=== PATIENT | female | born 1955 | race Caucasian/White ===

== ENCOUNTER 2020-05-14 07:09 | Inpatient (IN) | payer MEDICARE, MEDICAID ==
[~2020-05-14] VITALS: Ht 180.3 cm; Wt 102.7 kg
[2020-05-14] MEDS ORDERED: SODIUM CHLORIDE 0.9% 1,000 ML IV ONE (07:36)
[2020-05-14] MEDS ORDERED: SODIUM CHLORIDE 0.9% 1,000 ML IVB ONE (07:36)
[2020-05-14] MEDS ORDERED: ASPirin 81 mg TAB PO ONE ×2 (07:45→13:15)
[2020-05-14] MEDS ORDERED: dilTIAZem 25 MG/5 ML VIAL IV ONE (07:45)
[2020-05-14 07:51] LABS: Basophils # (auto) 0 10 ^3/uL (0-0.2); Basophils % (auto) 0.7 % (0.0-2.0); Eosinophils # (auto) 0.2 10 ^3/uL (0-0.8); Eosinophils % (auto) 3.2 % (0.0-7.0); Hematocrit 47.1 % (36.0-46.0); Hemoglobin 15.7 g/dL (12.2-16.2); Lymphocytes # (auto) 1.9 10 ^3/uL (0.4-5.4); Lymphocytes % (auto) 28.5 % (10.0-50.0); Mean Corpuscular Hgb Conc. 33.3 g/dL (32.0-36.0); Mean Corpuscular Volume 93.2 fL (80.0-100.0); Monocytes # (auto) 0.8 10 ^3/uL (0-1.3); Monocytes % (auto) 11.5 % (0.0-12.0); Neutrophils # (auto) 3.7 10 ^3/uL (1.6-8.6); Neutrophils % (auto) 56.1 % (37.0-80.0); Nucleated Red Blood Cells % 0.1 %; Platelet Count (auto) 189 10^3/uL (140-450); Red Blood Cells 5.05 10^6/uL (4.0-5.20); Red Cell Distribution Width 13.7 % (11.8-14.3); White Blood Cell 6.5 10^3/uL (4.4-10.8)
[2020-05-14 08:05] LABS: Albumin 4.1 g/dL (3.4-5.0); Anion Gap 7 (5-15); Blood Urea Nitrogen 17 mg/dL (7-18); Carbon Dioxide 22 mmol/L (21-32); Chloride 106 mmol/L (98-107); Glucose 106 mg/dL (74-106); Magnesium 2.1 mg/dL (1.6-2.6); Potassium 4.1 mmol/L (3.5-5.1); Sodium 135 mmol/L (136-145)
[2020-05-14 08:10] LABS: Alanine Aminotransferase 27 U/L (13-56); Alkaline Phosphatase 92 U/L (45-117); Aspartate Aminotransferase 21 U/L (15-37); BUN/Creatinine Ratio 20.5; Bilirubin, Total 0.9 mg/dL (0.2-1.0); GFR African American 89 mL/min; GFR Non-African American 74 mL/min; Total Protein 7.7 g/dL (6.4-8.2)
[2020-05-14 08:51] LABS: INR 1.05 (0.9-1.15); Partial Thromboplastin Time 25.4 sec (23.0-31.2)
[2020-05-14 09:13] LABS: Urine Bacteria FEW /hpf (None Seen); Urine Blood Negative /uL (Negative); Urine Mucus FEW (None Seen); Urine Specific Gravity 1.011 (1.001-1.035); Urine WBC 2 /hpf (0 - 5)
[2020-05-14] MEDS ORDERED: IOHEXOL 350 MG/ML 100ML IJ ONE (11:01)
[2020-05-14] MEDS ORDERED: NITROGLYCERIN 0.4 MG SL TAB SL PRN ×3 (12:45)
[2020-05-14] MEDS ORDERED: METOPROLOL TARTRATE 1MG/1ML-5ML VIAL IV PRN (12:45)
[2020-05-14] MEDS ORDERED: ALUM & MAG HYDROX-SIMETH LIQ(MAALOX) 30 ML PO PRN (12:45)
[2020-05-14] MEDS ORDERED: MORPHINE SULFATE 4 MG/ML SYR/VIAL IV PRN (12:45)
[2020-05-14] MEDS ORDERED: cefTRIAXone 1GM/50ML D5W 50 ML IV ONE (12:45)
[2020-05-14] MEDS ORDERED: MORPHINE SULF INJ 2 MG/ML SYRINGE 1ML IV PRN ×3 (12:45)
[2020-05-14] MEDS ORDERED: HYDROcodone-ACET 5/325MG TAB PO PRN (12:45)
[2020-05-14] MEDS ORDERED: METOCLOPRAMIDE HCL 5MG/ml INJ 2ml VIAL IV PRN (12:45)
[2020-05-14] MEDS ORDERED: LORazepam 0.5 MG TAB PO PRN (12:45)
[2020-05-14] MEDS ORDERED: SODIUM CHLORIDE 0.9% 1,000 ML IV SCH (12:45)
[2020-05-14] MEDS ORDERED: DOCUSATE SOD 100 MG CAP PO PRN (12:45)
[2020-05-14] MEDS ORDERED: ACETAMINOPHEN 325 MG TAB PO PRN (12:45)
[2020-05-14] MEDS ORDERED: cefTRIAXone SOD 1,000 MG VL ONE (12:50)
[2020-05-14] MEDS ORDERED: AMIODARONE 450mg/250ml AE 250 ML IV SCH (13:13)
[2020-05-14] MEDS ORDERED: AZITHROMYCIN 500MG/ 250ML 250 ML IV ONE (13:15)
[2020-05-14] MEDS ORDERED: AMIODARONE HCL 150 MG in D5W 5% 100 ML IV ONE (13:15)
[2020-05-14] MEDS ORDERED: ENOXAPARIN SOD 40 MG/0.4 ML SYRINGE SC ONE (13:15)
[2020-05-14] MEDS ORDERED: LISINOPRIL 5 MG TAB PO ONE (13:15)
[2020-05-14 13:24] LABS: Cholesterol 131 mg/dL (< 200)
[2020-05-14] MEDS ORDERED: VARE1TAB PO (13:26)
[2020-05-14] MEDS ORDERED: MET25T PO (13:26)
[2020-05-14] MEDS ORDERED: LISI30TA4 PO (13:26)
[2020-05-14 13:27] LABS: HDL Cholesterol 46 mg/dL (40-59); LDL Cholesterol 72 mg/dL (< 100); Triglycerides 126 mg/dL (< 150)
[2020-05-14] MEDS ORDERED: HCTZ25T PO (13:27)
[2020-05-14] MEDS ORDERED: NAP500T PO (13:27)
[2020-05-14] MEDS ORDERED: CHOL500023 PO (13:27)
[2020-05-14] MEDS: SODIUM CHLORIDE 0.9% 1,000 ML IV SCH (14:50)
[2020-05-14 16:31] LABS: Alcohol, Urine < 3.0 mg/dL (0-10); Amphetamine Screen, Urine NEGATIVE (NEGATIVE); Barbiturate Scree,Urine NEGATIVE (NEGATIVE); Benzodiazephine Screen, Urine NEGATIVE (NEGATIVE); Cannabinoid Screen, Urine NEGATIVE (NEGATIVE); Cocaine Screen, Urine NEGATIVE (NEGATIVE); Opiate Scree,Urine NEGATIVE (NEGATIVE); Phencyclidine Screen, Urine NEGATIVE (NEGATIVE)
[2020-05-14] MEDS ORDERED: AMIODARONE HCL 75 MG in D5W 5% 100 ML IV ONE (20:30)
[2020-05-14] MEDS ORDERED: AMIODARONE HCL (50 MG/ ML) 3 ML VIAL IV ONE (21:18)
[2020-05-14 21:53] VITALS: BP 119/83
[2020-05-14 22:05] VITALS: BP 119/83
[2020-05-14] MEDS: ATORVASTATIN 20 MG TAB PO SCH (22:27)
[2020-05-14] MEDS: METOPROLOL TARTRATE 25 MG TAB PO SCH (22:27)
[2020-05-14] MEDS ORDERED: KETOROLAC TROMETH 30 MG/ML 1ML VIAL IV ONE (23:15)
[2020-05-14] MEDS ORDERED: LORazepam 2MG/ML-1ML VIAL IV PRN (23:30)
[2020-05-15] MEDS ORDERED: AMIODARONE 450mg/250ml AE 250 ML IV SCH (02:35)
[2020-05-15 05:00] VITALS: BP 137/92
[2020-05-15] MEDS: SODIUM CHLORIDE 0.9% 1,000 ML IV SCH (07:02)
[2020-05-15] MEDS: cefTRIAXone 1GM/50ML D5W 50 ML IV SCH (08:56)
[2020-05-15] MEDS: CHANTIX 1 MG PO SCH ×2 (08:56→22:00)
[2020-05-15] MEDS: APIXABAN 5 MG TAB PO SCH ×2 (08:57→22:35)
[2020-05-15] MEDS: AMIODARONE HCL 200 MG TAB PO SCH ×2 (08:57→22:34)
[2020-05-15] MEDS: METOPROLOL TARTRATE 25 MG TAB PO SCH ×2 (08:58→22:35)
[2020-05-15] MEDS: LISINOPRIL 20 MG TAB PO SCH (08:59)
[2020-05-15 09:00] VITALS: BP 135/65
[2020-05-15] MEDS: AZITHROMYCIN 500MG/ 250ML 250 ML IV SCH (09:40)
[2020-05-15] MEDS ORDERED: ASPirin 81 mg TAB PO SCH (10:00)
[2020-05-15] MEDS ORDERED: HCTZ 25 MG TAB PO SCH (10:00)
[2020-05-15] MEDS ORDERED: CHOLECALCIFEROL (VITD3) 2,000 UNIT CAP PO SCH (10:00)
[2020-05-15] MEDS ORDERED: AZITHROMYCIN 500MG/ 250ML 250 ML IV SCH (10:00)
[2020-05-15] MEDS ORDERED: ENOXAPARIN SOD 40 MG/0.4 ML SYRINGE SC SCH (10:00)
[2020-05-15] MEDS ORDERED: LISINOPRIL 5 MG TAB PO SCH (10:00)
[2020-05-15 13:00] VITALS: BP 120/76
[2020-05-15 17:00] VITALS: BP 120/51
[2020-05-15 22:00] VITALS: BP 136/80
[2020-05-15] MEDS: ATORVASTATIN 20 MG TAB PO SCH (22:35)
[2020-05-16 05:00] VITALS: BP 112/68
[2020-05-16 08:44] VITALS: BP 113/67
[2020-05-16] MEDS: cefTRIAXone 1GM/50ML D5W 50 ML IV SCH (09:23)
[2020-05-16] MEDS: CHANTIX 1 MG PO SCH (09:31)
[2020-05-16] MEDS ORDERED: CHOLECALCIFEROL (VITD3) 1,000UNIT=25mCg TAB PO SCH (10:00)
[2020-05-16] MEDS: AMIODARONE HCL 200 MG TAB PO SCH (10:17)
[2020-05-16] MEDS: AZITHROMYCIN 500MG/ 250ML 250 ML IV SCH (10:17)
[2020-05-16] MEDS: APIXABAN 5 MG TAB PO SCH (10:17)
[2020-05-16] MEDS: METOPROLOL TARTRATE 25 MG TAB PO SCH (10:19)
[2020-05-16] MEDS: LISINOPRIL 20 MG TAB PO SCH (10:20)
[2020-05-16] MEDS ORDERED: APIX5TAB PO (11:53)
[2020-05-16] MEDS ORDERED: ATOR20TA50 PO (11:53)
[2020-05-16] MEDS ORDERED: AMIO200T4 PO (11:53)
[2020-05-16] MEDS ORDERED: CIPR-173 PO (11:53)
[2020-05-16] MEDS ORDERED: MET25T PO (11:58)
[2020-05-16] MEDS ORDERED: DOXY-286 PO (11:59)
[2020-05-16 13:00] VITALS: BP 99/69
[2020-05-16 14:49] VITALS: BP 99/69
== END 2020-05-16 16:10 | disposition home or self-care (01) | DRG 178 ==
LOC: ER 07:09 → TELE 07:10 → TELE-WESTW 21:53
PROVIDERS: ADMIT Hospitalist; ATTEND Internal Medicine Nephrology
DX: J15.6 Pneumonia due to other Gram-negative bacteria (principal); N39.0 Urinary tract infection, site not specified; E87.1 Hypo-osmolality and hyponatremia; I50.22 Chronic systolic (congestive) heart failure; J44.0 Chronic obstructive pulmonary disease with (acute) lower respiratory infection; I48.91 Unspecified atrial fibrillation; E66.01 Morbid (severe) obesity due to excess calories; E78.5 Hyperlipidemia, unspecified; F10.10 Alcohol abuse, uncomplicated; F14.90 Cocaine use, unspecified, uncomplicated; F17.200 Nicotine dependence, unspecified, uncomplicated; I11.0 Hypertensive heart disease with heart failure; I27.29 Other secondary pulmonary hypertension; M19.90 Unspecified osteoarthritis, unspecified site; Z79.01 Long term (current) use of anticoagulants; Z79.899 Other long term (current) drug therapy; Z83.3 Family history of diabetes mellitus; Z91.19 Patient's noncompliance with other medical treatment and regimen; Z68.31 Body mass index [BMI] 31.0-31.9, adult
CPT/HCPCS: 36415; 71046; 71275; 80053; 80061; 80307; 81001; 83036; 83735; 83880; 84443; 84484; 85025; 85379; 85610; 85730; 87040; 87086; 93005; 93306; 96365; 96367; 96372; 96375; G0378; J0696; J7060

== ENCOUNTER → 2020-07-01 | Outpatient (CLI) | payer MEDICARE ==
[~2020-07-01] MED LIST: AMIO200T4 PO; APIX5TAB PO; ATOR20TA50 PO; CHOL500023 PO; CIPR-173 PO; DOXY-286 PO; HCTZ25T PO; LISI30TA4 PO; MET25T PO; VARE1TAB PO
== END | disposition home or self-care (01) ==
LOC: LAB 14:06
PROVIDERS: ATTEND Internal Medicine
DX: E11.9 Type 2 diabetes mellitus without complications (principal); R06.02 Shortness of breath
CPT/HCPCS: 82043; 82270

== ENCOUNTER → 2020-08-28 | Outpatient (CLI) | payer MEDICARE ==
[2020-08-28 09:07] LABS: Calcium 9.5 mg/dL (8.5-10.1); Potassium 4.1 mmol/L (3.5-5.1)
[2020-08-28 09:09] LABS: BUN/Creatinine Ratio 17.1
== END | disposition home or self-care (01) ==
LOC: LAB 08:03
PROVIDERS: ATTEND Internal Medicine
DX: I10 Essential (primary) hypertension (principal); R73.03 Prediabetes
CPT/HCPCS: 36415; 80048; 83036

== ENCOUNTER → 2021-01-06 | Outpatient (CLI) | payer MEDICARE, MEDICAID ==
[~2021-01-06] VITALS: Ht 180.3 cm; Wt 99.8 kg
[~2021-01-06] MED LIST changes: +ADENOSINE 84 MG in GIVE UN-DILUTED 0 ML IV STA; -HCTZ25T PO; +HYDR25TA5 PO
[2021-01-06 11:35] VITALS: BP 156/82
== END | disposition home or self-care (01) ==
LOC: XY 09:17
PROVIDERS: ATTEND Internal Medicine
DX: I50.22 Chronic systolic (congestive) heart failure (principal)
CPT/HCPCS: 78452; 93017; A9500; J0153

== ENCOUNTER → 2021-01-14 | Outpatient (CLI) | payer MEDICARE, MEDICAID ==
[~2021-01-14] MED LIST changes: -ADENOSINE 84 MG in GIVE UN-DILUTED 0 ML IV STA
[2021-01-14 09:26] LABS: Albumin 3.6 g/dL (3.4-5.0); Potassium 4.4 mmol/L (3.5-5.1)
[2021-01-14 09:37] LABS: BUN/Creatinine Ratio 17.8; Bilirubin, Total 0.5 mg/dL (0.2-1.0); Calcium 9.1 mg/dL (8.5-10.1); Total Protein 7.2 g/dL (6.4-8.2)
== END | disposition home or self-care (01) ==
LOC: LAB 08:14
PROVIDERS: ATTEND Internal Medicine
DX: N18.30 Chronic kidney disease, stage 3 unspecified (principal); E78.5 Hyperlipidemia, unspecified; E55.9 Vitamin D deficiency, unspecified; R73.03 Prediabetes
CPT/HCPCS: 36415; 80053; 80061; 82306; 83036; 84443

== ENCOUNTER → 2021-01-22 | Outpatient (CLI) | payer MEDICARE, MEDICAID | END | disposition home or self-care (01) | LOC: XYW 08:35 | PROVIDERS: ATTEND Internal Medicine | DX: I50.22 Chronic systolic (congestive) heart failure (principal) | CPT/HCPCS: 93306 ==

== ENCOUNTER → 2021-02-20 | Outpatient (CLI) | payer MEDICARE, MEDICAID | END | disposition home or self-care (01) | LOC: XY 09:49 | PROVIDERS: ATTEND Internal Medicine | DX: I70.201 Unspecified atherosclerosis of native arteries of extremities, right leg (principal); I45.89 Other specified conduction disorders | CPT/HCPCS: 93925 ==

== ENCOUNTER → 2021-04-15 | Outpatient (CLI) | payer MEDICARE, MEDICAID ==
[2021-04-15 09:29] LABS: Cholesterol 125 mg/dL (< 200); HDL Cholesterol 77 mg/dL (40-59); LDL Cholesterol 38 mg/dL (< 100); Triglycerides 89 mg/dL (< 150)
== END | disposition home or self-care (01) ==
LOC: LAB 08:15
PROVIDERS: ATTEND Internal Medicine
DX: I10 Essential (primary) hypertension (principal); R73.03 Prediabetes
CPT/HCPCS: 36415; 80061; 82043

== ENCOUNTER → 2021-06-19 | Outpatient (CLI) | payer MEDICARE, MEDICAID | END | disposition home or self-care (01) | LOC: XYW 06-17 08:30 | PROVIDERS: ATTEND Internal Medicine | DX: I11.9 Hypertensive heart disease without heart failure (principal) | CPT/HCPCS: 93306 ==

== ENCOUNTER → 2021-08-29 | Outpatient (CLI) | payer MEDICARE, MEDICAID ==
[2021-08-29 11:32] LABS: Albumin 3.4 g/dL (3.4-5.0); Calcium 8.8 mg/dL (8.5-10.1)
[2021-08-29 11:34] LABS: BUN/Creatinine Ratio 18.9
[2021-08-29 11:36] LABS: Bilirubin, Total 0.7 mg/dL (0.2-1.0); Total Protein 7.1 g/dL (6.4-8.2)
== END | disposition home or self-care (01) ==
LOC: LAB 08:04
PROVIDERS: ATTEND Internal Medicine
DX: J44.9 Chronic obstructive pulmonary disease, unspecified (principal); I11.9 Hypertensive heart disease without heart failure
CPT/HCPCS: 36415; 80053; 82270

== ENCOUNTER 2021-10-24 11:04 | Inpatient (IN) | payer MEDICARE, MEDICAID ==
[~2021-10-24] VITALS: Ht 180.3 cm; Wt 112.9 kg
[2021-10-24 12:04] LABS: Basophils # (auto) 0 10 ^3/uL (0-0.2); Basophils % (auto) 0.5 % (0.0-2.0); Eosinophils # (auto) 0.1 10 ^3/uL (0-0.8); Eosinophils % (auto) 0.6 % (0.0-7.0); Hematocrit 39.4 % (36.0-46.0); Lymphocytes # (auto) 0.8 10 ^3/uL (0.4-5.4); Lymphocytes % (auto) 8.4 % (10.0-50.0); Mean Corpuscular Hemoglobin 31.2 pg (28.0-32.0); Mean Corpuscular Volume 94.6 fL (80.0-100.0); Monocytes # (auto) 1.3 10 ^3/uL (0-1.3); Monocytes % (auto) 13.6 % (0.0-12.0); Neutrophils # (auto) 7.3 10 ^3/uL (1.6-8.6); Neutrophils % (auto) 76.9 % (37.0-80.0); Red Blood Cells 4.17 10^6/uL (4.0-5.20); Red Cell Distribution Width 15.3 % (11.8-14.3); White Blood Cell 9.4 10^3/uL (4.4-10.8)
[2021-10-24 12:07] LABS: Urine Bacteria MOD /hpf (None Seen); Urine Blood 3+ /uL (Negative); Urine Specific Gravity 1.015 (1.001-1.035); Urine WBC 466 /hpf (0 - 5)
[2021-10-24 12:12] LABS: Albumin 2.8 g/dL (3.4-5.0); Calcium 9.4 mg/dL (8.5-10.1); Potassium 4.3 mmol/L (3.5-5.1)
[2021-10-24 12:15] LABS: Bilirubin, Total 0.8 mg/dL (0.2-1.0); Total Protein 7.2 g/dL (6.4-8.2)
[2021-10-24] MEDS ORDERED: SODIUM CHLORIDE 0.9% 1,000 ML IV ONE ×2 (12:15→12:45)
[2021-10-24 12:27] LABS: BUN/Creatinine Ratio 26.8
[2021-10-24] MEDS ORDERED: cefTRIAXone 1GM/50ML D5W 50 ML IV ONE (12:45)
[2021-10-24 13:06] LABS: Magnesium 2.3 mg/dL (1.6-2.6)
[2021-10-24] MEDS ORDERED: NOREPINEPHRINE 8 MG/250ML KIT 250 ML IV ONE (14:10)
[2021-10-24] MEDS: NOREPINEPHRINE 8 MG/250ML KIT 250 ML IV SCH (14:17)
[2021-10-24] MEDS ORDERED: MORPHINE SULFATE INJECTION 2 MG/ML SYRG IV PRN (15:30)
[2021-10-24] MEDS ORDERED: SODIUM CHLORIDE 0.9% 3,000 ML IV ONE (15:30)
[2021-10-24] MEDS ORDERED: NITROGLYCERIN 0.4 MG SL TAB SL PRN (15:30)
[2021-10-24] MEDS ORDERED: DEXTROSE (50%) 50ML SYRG IV PRN (16:00)
[2021-10-24] MEDS ORDERED: LORazepam 0.5 MG TAB PO PRN (16:00)
[2021-10-24] MEDS ORDERED: ONDANSETRON HCL 4 MG/2 ML VIAL IV PRN (16:00)
[2021-10-24] MEDS: InsuLIN REG 1unit/0.01ml Soln (100units/ml) SC SCH ×2 (17:00→22:00)
[2021-10-24] MEDS: SODIUM CHLORIDE 0.9% 1,000 ML IV SCH (17:12)
[2021-10-24] MEDS: MORPHINE SULFATE INJECTION 2 MG/ML SYRG IV PRN (17:13)
[2021-10-24] MEDS: ACCU-CHEK COMFORT CURVE STRIP VI SCH ×2 (17:25→22:31)
[2021-10-24] MEDS ORDERED: GABA300C10 PO (17:58)
[2021-10-24] MEDS ORDERED: METF-370 PO (17:58)
[2021-10-24] MEDS ORDERED: FLUT0.05 NAS (17:58)
[2021-10-24] MEDS ORDERED: FLUT1AER3 IN (17:58)
[2021-10-24] MEDS ORDERED: TRAM50TA2 PO (17:58)
[2021-10-24] MEDS ORDERED: ALEN70TA74 PO (17:58)
[2021-10-24] MEDS ORDERED: LISI2.5T47 PO (17:58)
[2021-10-24] MEDS ORDERED: CYCL-839 PO (17:58)
[2021-10-24] MEDS: ALBUTEROL SULF 2.5 MG/0.5ML(0.5%) NEB SOLN NEB SCH ×2 (18:04→23:11)
[2021-10-24] MEDS: IPRATROPIUM BROM 0.5 MG/2.5ML INH SOL NEB SCH ×2 (18:04→23:11)
[2021-10-24] MEDS: APIXABAN 5 MG TAB PO SCH (22:33)
[2021-10-25] MEDS: SODIUM CHLORIDE 0.9% 1,000 ML IV SCH ×3 (05:53→22:10)
[2021-10-25 06:08] LABS: Basophils # (auto) 0.1 10 ^3/uL (0-0.2); Basophils % (auto) 0.7 % (0.0-2.0); Eosinophils # (auto) 0.1 10 ^3/uL (0-0.8); Eosinophils % (auto) 0.7 % (0.0-7.0); Hematocrit 37.2 % (36.0-46.0); Hemoglobin 12.4 g/dL (12.2-16.2); Lymphocytes % (auto) 10.3 % (10.0-50.0); Mean Corpuscular Hemoglobin 31.8 pg (28.0-32.0); Mean Corpuscular Hgb Conc. 33.4 g/dL (32.0-36.0); Mean Corpuscular Volume 95.1 fL (80.0-100.0); Monocytes # (auto) 1.8 10 ^3/uL (0-1.3); Neutrophils # (auto) 6.6 10 ^3/uL (1.6-8.6); Neutrophils % (auto) 69.8 % (37.0-80.0); Red Blood Cells 3.91 10^6/uL (4.0-5.20); Red Cell Distribution Width 14.7 % (11.8-14.3); White Blood Cell 9.4 10^3/uL (4.4-10.8)
[2021-10-25 06:13] LABS: Monocytes % (auto) 18.5 % (0.0-12.0)
[2021-10-25] MEDS: IPRATROPIUM BROM 0.5 MG/2.5ML INH SOL NEB SCH ×3 (06:13→18:04)
[2021-10-25] MEDS: ALBUTEROL SULF 2.5 MG/0.5ML(0.5%) NEB SOLN NEB SCH ×3 (06:13→18:04)
[2021-10-25 06:18] LABS: Albumin 2.6 g/dL (3.4-5.0); Calcium 9.1 mg/dL (8.5-10.1); Potassium 4.3 mmol/L (3.5-5.1)
[2021-10-25 06:21] LABS: BUN/Creatinine Ratio 36.5; Bilirubin, Total 0.8 mg/dL (0.2-1.0); Total Protein 6.7 g/dL (6.4-8.2)
[2021-10-25] MEDS: ACCU-CHEK COMFORT CURVE STRIP VI SCH ×4 (07:59→22:30)
[2021-10-25] MEDS: InsuLIN REG 1unit/0.01ml Soln (100units/ml) SC SCH ×4 (08:10→22:50)
[2021-10-25] MEDS ORDERED: cefTRIAXone 1GM/50ML D5W 50 ML IV SCH (09:00)
[2021-10-25] MEDS: APIXABAN 5 MG TAB PO SCH ×2 (10:57→22:20)
[2021-10-25] MEDS ORDERED: ALBUMIN 5% 250 ML IV ONE (14:45)
[2021-10-25] MEDS: NOREPINEPHRINE 8 MG/250ML KIT 250 ML IV SCH (14:47)
[2021-10-25] MEDS ORDERED: cefTRIAXone 1GM/50ML D5W 50 ML IV ONE ×2 (18:00)
[2021-10-25] MEDS: HEPARIN SODIUM (PORCINE) 5000 UNITS/ML 1ML VIAL SC SCH (22:20)
[2021-10-25] MEDS: MORPHINE SULFATE INJECTION 2 MG/ML SYRG IV PRN (22:44)
[2021-10-26] VITALS (21 sets, daily range): BP systolic 89–120; BP diastolic 47–66
[2021-10-26] MEDS: IPRATROPIUM BROM 0.5 MG/2.5ML INH SOL NEB SCH ×4 (01:23→20:41)
[2021-10-26] MEDS: ALBUTEROL SULF 2.5 MG/0.5ML(0.5%) NEB SOLN NEB SCH ×4 (01:23→20:41)
[2021-10-26] MEDS: MORPHINE SULFATE INJECTION 2 MG/ML SYRG IV PRN ×2 (03:31→13:32)
[2021-10-26 03:39] LABS: INR 1.6 (0.9-1.15); Partial Thromboplastin Time 40.2 sec (23.6-33.0)
[2021-10-26] MEDS: ACCU-CHEK COMFORT CURVE STRIP VI SCH ×4 (07:00→23:03)
[2021-10-26] MEDS: InsuLIN REG 1unit/0.01ml Soln (100units/ml) SC SCH ×4 (07:00→22:00)
[2021-10-26] MEDS: SODIUM CHLORIDE 0.9% 1,000 ML IV SCH (09:02)
[2021-10-26] MEDS: HEPARIN SODIUM (PORCINE) 5000 UNITS/ML 1ML VIAL SC SCH ×2 (09:02→21:07)
[2021-10-26] MEDS: APIXABAN 5 MG TAB PO SCH ×2 (09:03→21:07)
[2021-10-26] MEDS: CEFTRIAXONE SODIUM 2 GM in D5W 5% 50 ML IV SCH (09:11)
[2021-10-26] MEDS ORDERED: METO25TA93 PO (09:49)
[2021-10-26] MEDS ORDERED: CAL025T GT (09:49)
[2021-10-26] MEDS ORDERED: FLUT1SPR5 (09:49)
[2021-10-26] MEDS ORDERED: METF-370 PO (10:09)
[2021-10-26 10:56] LABS: Basophils # (auto) 0 10 ^3/uL (0-0.2); Basophils % (auto) 0.3 % (0.0-2.0); Eosinophils # (auto) 0.1 10 ^3/uL (0-0.8); Eosinophils % (auto) 0.9 % (0.0-7.0); Hematocrit 35.6 % (36.0-46.0); Hemoglobin 11.7 g/dL (12.2-16.2); Lymphocytes % (auto) 13.3 % (10.0-50.0); Mean Corpuscular Hemoglobin 31.7 pg (28.0-32.0); Mean Corpuscular Hgb Conc. 32.8 g/dL (32.0-36.0); Mean Corpuscular Volume 96.6 fL (80.0-100.0); Monocytes # (auto) 1.3 10 ^3/uL (0-1.3); Monocytes % (auto) 17.1 % (0.0-12.0); Neutrophils # (auto) 5.2 10 ^3/uL (1.6-8.6); Neutrophils % (auto) 68.4 % (37.0-80.0); Red Blood Cells 3.68 10^6/uL (4.0-5.20); Red Cell Distribution Width 15.6 % (11.8-14.3); White Blood Cell 7.7 10^3/uL (4.4-10.8)
[2021-10-26 10:59] LABS: BUN/Creatinine Ratio 41.1; Calcium 8.6 mg/dL (8.5-10.1); Potassium 5.3 mmol/L (3.5-5.1)
[2021-10-26 11:59] LABS: Protein, Urine 34.2 mg/dL (0.0-11.9)
[2021-10-26] MEDS: SODIUM BICARBONATE 50ML VIAL 50 ML in SOD CHL 0.45% 1,000 ML IV SCH ×2 (13:05→19:24)
[2021-10-26] MEDS: NOREPINEPHRINE 8 MG/250ML KIT 250 ML IV SCH (14:03)
[2021-10-26 15:56] LABS: Amphetamine Screen, Urine NEGATIVE (NEGATIVE); Barbiturate Scree,Urine NEGATIVE (NEGATIVE); Benzodiazephine Screen, Urine NEGATIVE (NEGATIVE); Cannabinoid Screen, Urine NEGATIVE (NEGATIVE); Cocaine Screen, Urine NEGATIVE (NEGATIVE); Opiate Scree,Urine NEGATIVE (NEGATIVE); Phencyclidine Screen, Urine NEGATIVE (NEGATIVE)
[2021-10-27] MEDS: MORPHINE SULFATE INJECTION 2 MG/ML SYRG IV PRN ×4 (00:42→21:42)
[2021-10-27] MEDS: SODIUM BICARBONATE 50ML VIAL 50 ML in SOD CHL 0.45% 1,000 ML IV SCH ×2 (01:45→10:10)
[2021-10-27] MEDS: ALBUTEROL SULF 2.5 MG/0.5ML(0.5%) NEB SOLN NEB SCH ×4 (06:27→18:03)
[2021-10-27] MEDS: IPRATROPIUM BROM 0.5 MG/2.5ML INH SOL NEB SCH ×4 (06:27→18:03)
[2021-10-27] MEDS: ACCU-CHEK COMFORT CURVE STRIP VI SCH ×4 (06:34→21:38)
[2021-10-27 06:39] LABS: Basophils # (auto) 0 10 ^3/uL (0-0.2); Basophils % (auto) 0.4 % (0.0-2.0); Eosinophils # (auto) 0.1 10 ^3/uL (0-0.8); Eosinophils % (auto) 1.2 % (0.0-7.0); Hematocrit 31.9 % (36.0-46.0); Hemoglobin 10.5 g/dL (12.2-16.2); Lymphocytes # (auto) 0.8 10 ^3/uL (0.4-5.4); Lymphocytes % (auto) 12.6 % (10.0-50.0); Mean Corpuscular Hemoglobin 31.1 pg (28.0-32.0); Mean Corpuscular Volume 94.2 fL (80.0-100.0); Monocytes # (auto) 0.9 10 ^3/uL (0-1.3); Monocytes % (auto) 13.9 % (0.0-12.0); Neutrophils # (auto) 4.7 10 ^3/uL (1.6-8.6); Neutrophils % (auto) 71.9 % (37.0-80.0); Nucleated Red Blood Cells % 0.1 %; Red Blood Cells 3.39 10^6/uL (4.0-5.20); White Blood Cell 6.6 10^3/uL (4.4-10.8)
[2021-10-27] MEDS: InsuLIN REG 1unit/0.01ml Soln (100units/ml) SC SCH ×4 (06:39→21:48)
[2021-10-27 06:51] LABS: Albumin 2.1 g/dL (3.4-5.0); Calcium 8.1 mg/dL (8.5-10.1); INR 1.47 (0.9-1.15); Potassium 3.7 mmol/L (3.5-5.1)
[2021-10-27 06:56] LABS: BUN/Creatinine Ratio 33.9; Bilirubin, Total 0.9 mg/dL (0.2-1.0); Total Protein 5.6 g/dL (6.4-8.2)
[2021-10-27 09:00] VITALS: BP 116/56
[2021-10-27] MEDS: CEFTRIAXONE SODIUM 2 GM in D5W 5% 50 ML IV SCH (09:59)
[2021-10-27] MEDS: APIXABAN 5 MG TAB PO SCH (10:00)
[2021-10-27] MEDS: HEPARIN SODIUM (PORCINE) 5000 UNITS/ML 1ML VIAL SC SCH ×2 (10:00→21:38)
[2021-10-27 13:00] VITALS: BP_SYST 124; BP_SYST 87; BP_DIAS 56; BP_DIAS 58
[2021-10-27 17:00] VITALS: BP 123/62
[2021-10-27 22:00] VITALS: BP 123/58
[2021-10-28] MEDS ORDERED: SODIUM CHLORIDE 0.9% 1,000 ML IV SCH (00:45)
[2021-10-28] MEDS: MORPHINE SULFATE INJECTION 2 MG/ML SYRG IV PRN ×3 (01:53→11:57)
[2021-10-28 05:00] VITALS: BP 132/76
[2021-10-28] MEDS: IPRATROPIUM BROM 0.5 MG/2.5ML INH SOL NEB SCH ×4 (05:56→18:15)
[2021-10-28] MEDS: ALBUTEROL SULF 2.5 MG/0.5ML(0.5%) NEB SOLN NEB SCH ×4 (05:56→18:15)
[2021-10-28] MEDS: ACCU-CHEK COMFORT CURVE STRIP VI SCH ×4 (06:33→21:45)
[2021-10-28] MEDS: InsuLIN REG 1unit/0.01ml Soln (100units/ml) SC SCH ×4 (06:33→22:02)
[2021-10-28 06:51] LABS: Potassium 3.6 mmol/L (3.5-5.1)
[2021-10-28 07:04] LABS: BUN/Creatinine Ratio 29.1; Bilirubin, Total 0.9 mg/dL (0.2-1.0); Calcium 7.8 mg/dL (8.5-10.1); Total Protein 5.6 g/dL (6.4-8.2)
[2021-10-28 09:00] VITALS: BP 118/65
[2021-10-28] MEDS: CEFTRIAXONE SODIUM 2 GM in D5W 5% 50 ML IV SCH (10:36)
[2021-10-28] MEDS ORDERED: DOCUSATE SOD 100 MG CAP PO PRN (11:45)
[2021-10-28] MEDS: HEPARIN SODIUM (PORCINE) 5000 UNITS/ML 1ML VIAL SC SCH (11:54)
[2021-10-28] MEDS: LACTULOSE 20Gm/30ML SOLN PO PRN (12:29)
[2021-10-28 13:00] VITALS: BP 122/69
[2021-10-28] MEDS: SODIUM CHLORIDE 0.9% 1,000 ML IV SCH (15:45)
[2021-10-28 17:00] VITALS: BP 121/69
[2021-10-28] MEDS: HYDROmorphone HCL 2 MG/ML VL IV PRN ×2 (17:20→21:45)
[2021-10-28] MEDS: ONDANSETRON HCL 4 MG/2 ML VIAL IV PRN ×2 (17:34→21:45)
[2021-10-28 22:00] VITALS: BP 105/55
[2021-10-29] MEDS: IPRATROPIUM BROM 0.5 MG/2.5ML INH SOL NEB SCH ×3 (00:36→18:20)
[2021-10-29] MEDS: ALBUTEROL SULF 2.5 MG/0.5ML(0.5%) NEB SOLN NEB SCH ×3 (00:36→18:20)
[2021-10-29 05:00] VITALS: BP 116/67
[2021-10-29] MEDS: ONDANSETRON HCL 4 MG/2 ML VIAL IV PRN ×5 (05:13→20:36)
[2021-10-29] MEDS: HYDROmorphone HCL 2 MG/ML VL IV PRN ×4 (05:13→20:36)
[2021-10-29 05:29] LABS: Potassium 3.6 mmol/L (3.5-5.1)
[2021-10-29 05:31] LABS: Hematocrit 32.1 % (36.0-46.0); Hemoglobin 10.8 g/dL (12.2-16.2)
[2021-10-29 05:39] LABS: Bilirubin, Direct 0.4 mg/dL (0-0.2); Bilirubin, Total 0.8 mg/dL (0.2-1.0); Total Protein 5.6 g/dL (6.4-8.2)
[2021-10-29 05:57] LABS: INR 1.28 (0.9-1.15)
[2021-10-29] MEDS: ACCU-CHEK COMFORT CURVE STRIP VI SCH ×4 (06:16→22:21)
[2021-10-29] MEDS: InsuLIN REG 1unit/0.01ml Soln (100units/ml) SC SCH ×4 (06:16→22:00)
[2021-10-29 09:00] VITALS: BP 114/60
[2021-10-29] MEDS ORDERED: cefTRIAXone 1GM/50ML D5W 0 ML IV ONE (09:45)
[2021-10-29] MEDS: CEFTRIAXONE SODIUM 2 GM in D5W 5% 50 ML IV SCH ×2 (09:55→10:07)
[2021-10-29] MEDS: SODIUM CHLORIDE 0.9% 1,000 ML IV SCH (11:45)
[2021-10-29 13:00] VITALS: BP 118/62
[2021-10-29] MEDS: HYDROcodone-ACET 5/325MG TAB PO PRN (13:59)
[2021-10-29 15:29] LABS: Hepatitis B Surface Antibody Positive (Negative)
[2021-10-29 16:05] LABS: Hepatitis A Total Antibody Positive (Negative)
[2021-10-29 16:36] LABS: Hepatitis C Antibody Negative (Negative)
[2021-10-29 16:39] VITALS: BP 120/68
[2021-10-29 20:20] VITALS: BP 109/46
[2021-10-29 21:06] VITALS: BP 105/47
[2021-10-29] MEDS: DOCUSATE SOD 100 MG CAP PO SCH (22:00)
[2021-10-30] MEDS: HYDROcodone-ACET 5/325MG TAB PO PRN ×2 (00:15→18:52)
[2021-10-30] MEDS: IPRATROPIUM BROM 0.5 MG/2.5ML INH SOL NEB SCH ×4 (01:06→18:37)
[2021-10-30] MEDS: ALBUTEROL SULF 2.5 MG/0.5ML(0.5%) NEB SOLN NEB SCH ×4 (01:06→18:37)
[2021-10-30 02:48] VITALS: BP 121/56
[2021-10-30] MEDS: HYDROmorphone HCL 2 MG/ML VL IV PRN ×2 (02:48→09:23)
[2021-10-30 05:00] VITALS: BP 149/69
[2021-10-30] MEDS: ACCU-CHEK COMFORT CURVE STRIP VI SCH ×4 (06:17→21:22)
[2021-10-30] MEDS: InsuLIN REG 1unit/0.01ml Soln (100units/ml) SC SCH ×4 (06:17→21:22)
[2021-10-30 06:51] LABS: Albumin 1.9 g/dL (3.4-5.0); Potassium 3.8 mmol/L (3.5-5.1)
[2021-10-30 06:55] LABS: Bilirubin, Direct 0.4 mg/dL (0-0.2); Bilirubin, Total 0.8 mg/dL (0.2-1.0); Total Protein 5.3 g/dL (6.4-8.2)
[2021-10-30 07:04] LABS: INR 1.29 (0.9-1.15)
[2021-10-30 09:00] VITALS: BP 105/45
[2021-10-30] MEDS: cefTRIAXone 1GM/50ML D5W 50 ML IV SCH (09:19)
[2021-10-30] MEDS: SODIUM CHLORIDE 0.9% 1,000 ML IV SCH (09:23)
[2021-10-30] MEDS: DOCUSATE SOD 100 MG CAP PO SCH ×2 (09:24→21:21)
[2021-10-30] MEDS: ONDANSETRON HCL 4 MG/2 ML VIAL IV PRN (10:07)
[2021-10-30 13:00] VITALS: BP 119/54
[2021-10-30] MEDS ORDERED: fentaNYL CITRATE 100 MCG/2 ML VL IV ONE (13:00)
[2021-10-30] MEDS ORDERED: MIDAZOLAM HCL 2MG/2ML 2ml VIAL (1mg/ml) IV ONE (13:00)
[2021-10-30] MEDS ORDERED: LIDOCAINE 2%HCL (LOCAL ANESTH.) INJ 20ML MDV ONE (13:31)
[2021-10-30 17:00] VITALS: BP 136/61
[2021-10-30] MEDS: LACTULOSE 20Gm/30ML SOLN PO PRN (19:41)
[2021-10-30] MEDS: AMIODARONE HCL 200 MG TAB PO SCH (21:21)
[2021-10-30] MEDS: FAMOTIDINE 20 MG TAB PO SCH (21:22)
[2021-10-30 22:00] VITALS: BP 115/49
[2021-10-31] MEDS: IPRATROPIUM BROM 0.5 MG/2.5ML INH SOL NEB SCH ×4 (00:40→18:41)
[2021-10-31] MEDS: ALBUTEROL SULF 2.5 MG/0.5ML(0.5%) NEB SOLN NEB SCH ×4 (00:40→18:41)
[2021-10-31] MEDS: SODIUM CHLORIDE 0.9% 1,000 ML IV SCH ×2 (03:45→17:04)
[2021-10-31 05:00] VITALS: BP 107/38
[2021-10-31] MEDS: InsuLIN REG 1unit/0.01ml Soln (100units/ml) SC SCH ×4 (05:58→20:43)
[2021-10-31] MEDS: ACCU-CHEK COMFORT CURVE STRIP VI SCH ×4 (05:58→20:43)
[2021-10-31 07:56] LABS: Basophils # (auto) 0 10 ^3/uL (0-0.2); Basophils % (auto) 0.3 % (0.0-2.0); Eosinophils # (auto) 0.1 10 ^3/uL (0-0.8); Eosinophils % (auto) 0.8 % (0.0-7.0); Hematocrit 29.9 % (36.0-46.0); Hemoglobin 10.2 g/dL (12.2-16.2); Lymphocytes # (auto) 0.9 10 ^3/uL (0.4-5.4); Lymphocytes % (auto) 10.8 % (10.0-50.0); Mean Corpuscular Hemoglobin 32.2 pg (28.0-32.0); Mean Corpuscular Hgb Conc. 34.2 g/dL (32.0-36.0); Mean Corpuscular Volume 94.1 fL (80.0-100.0); Monocytes # (auto) 1.1 10 ^3/uL (0-1.3); Monocytes % (auto) 13.3 % (0.0-12.0); Neutrophils % (auto) 74.8 % (37.0-80.0); Nucleated Red Blood Cells % 0.3 %; Red Blood Cells 3.18 10^6/uL (4.0-5.20); Red Cell Distribution Width 14.7 % (11.8-14.3); White Blood Cell 8.1 10^3/uL (4.4-10.8)
[2021-10-31 07:58] LABS: Albumin 1.8 g/dL (3.4-5.0); Calcium 8.4 mg/dL (8.5-10.1); Potassium 3.5 mmol/L (3.5-5.1)
[2021-10-31 08:03] LABS: BUN/Creatinine Ratio 36.5; Bilirubin, Total 0.7 mg/dL (0.2-1.0)
[2021-10-31] MEDS: AMIODARONE HCL 200 MG TAB PO SCH ×2 (08:51→20:36)
[2021-10-31] MEDS: HYDROcodone-ACET 5/325MG TAB PO PRN ×3 (08:51→22:01)
[2021-10-31] MEDS: FAMOTIDINE 20 MG TAB PO SCH ×2 (08:51→20:36)
[2021-10-31] MEDS: cefTRIAXone 1GM/50ML D5W 50 ML IV SCH (08:51)
[2021-10-31] MEDS: DOCUSATE SOD 100 MG CAP PO SCH ×2 (08:51→20:35)
[2021-10-31 09:00] VITALS: BP 130/53
[2021-10-31 10:32] VITALS: BP 128/51
[2021-10-31 13:00] VITALS: BP 120/47
[2021-10-31 16:55] VITALS: BP 134/59
[2021-10-31 22:00] VITALS: BP 126/45
[2021-10-31] MEDS: ONDANSETRON HCL 4 MG/2 ML VIAL IV PRN (22:01)
[2021-11-01 05:00] VITALS: BP 124/52
[2021-11-01] MEDS: ACCU-CHEK COMFORT CURVE STRIP VI SCH ×4 (06:08→22:00)
[2021-11-01] MEDS: InsuLIN REG 1unit/0.01ml Soln (100units/ml) SC SCH ×4 (06:08→22:00)
[2021-11-01] MEDS: HYDROcodone-ACET 5/325MG TAB PO PRN ×4 (06:09→22:57)
[2021-11-01] MEDS: ALBUTEROL SULF 2.5 MG/0.5ML(0.5%) NEB SOLN NEB SCH ×4 (06:43→17:51)
[2021-11-01] MEDS: IPRATROPIUM BROM 0.5 MG/2.5ML INH SOL NEB SCH ×4 (06:43→17:51)
[2021-11-01] MEDS: AMIODARONE HCL 200 MG TAB PO SCH ×2 (08:18→22:56)
[2021-11-01] MEDS: cefTRIAXone 1GM/50ML D5W 50 ML IV SCH (08:18)
[2021-11-01] MEDS: DOCUSATE SOD 100 MG CAP PO SCH ×2 (08:18→22:56)
[2021-11-01] MEDS: FAMOTIDINE 20 MG TAB PO SCH ×2 (08:18→22:56)
[2021-11-01 09:00] VITALS: BP 121/52
[2021-11-01 13:00] VITALS: BP 124/49
[2021-11-01] MEDS ORDERED: FUROSEMIDE 20 MG/2 ML VIAL IV ONE (13:15)
[2021-11-01 17:00] VITALS: BP 118/52
[2021-11-01 22:00] VITALS: BP 119/57
[2021-11-02] MEDS: IPRATROPIUM BROM 0.5 MG/2.5ML INH SOL NEB SCH ×4 (00:03→18:38)
[2021-11-02] MEDS: ALBUTEROL SULF 2.5 MG/0.5ML(0.5%) NEB SOLN NEB SCH ×4 (00:03→18:38)
[2021-11-02 05:00] VITALS: BP 131/63
[2021-11-02 06:35] LABS: Basophils # (auto) 0 10 ^3/uL (0-0.2); Basophils % (auto) 0.3 % (0.0-2.0); Eosinophils # (auto) 0.1 10 ^3/uL (0-0.8); Eosinophils % (auto) 0.9 % (0.0-7.0); Hematocrit 31.2 % (36.0-46.0); Hemoglobin 10.5 g/dL (12.2-16.2); Lymphocytes # (auto) 0.9 10 ^3/uL (0.4-5.4); Lymphocytes % (auto) 9.8 % (10.0-50.0); Mean Corpuscular Hemoglobin 31.3 pg (28.0-32.0); Mean Corpuscular Hgb Conc. 33.7 g/dL (32.0-36.0); Mean Corpuscular Volume 92.9 fL (80.0-100.0); Monocytes # (auto) 1.1 10 ^3/uL (0-1.3); Neutrophils # (auto) 7.5 10 ^3/uL (1.6-8.6); Red Blood Cells 3.35 10^6/uL (4.0-5.20); Red Cell Distribution Width 15.1 % (11.8-14.3); White Blood Cell 9.7 10^3/uL (4.4-10.8)
[2021-11-02] MEDS: InsuLIN REG 1unit/0.01ml Soln (100units/ml) SC SCH ×4 (07:00→22:00)
[2021-11-02 07:09] LABS: BUN/Creatinine Ratio 36.6; Calcium 8.4 mg/dL (8.5-10.1); Potassium 3.7 mmol/L (3.5-5.1)
[2021-11-02] MEDS: ACCU-CHEK COMFORT CURVE STRIP VI SCH ×4 (07:21→22:00)
[2021-11-02 09:00] VITALS: BP 128/52
[2021-11-02] MEDS: cefTRIAXone 1GM/50ML D5W 50 ML IV SCH (09:14)
[2021-11-02] MEDS: DOCUSATE SOD 100 MG CAP PO SCH ×2 (09:15→23:05)
[2021-11-02] MEDS: AMIODARONE HCL 200 MG TAB PO SCH ×2 (09:16→23:05)
[2021-11-02] MEDS: FAMOTIDINE 20 MG TAB PO SCH ×2 (09:16→23:05)
[2021-11-02] MEDS: HYDROcodone-ACET 5/325MG TAB PO PRN ×3 (09:18→23:04)
[2021-11-02 13:00] VITALS: BP 127/62
[2021-11-02 17:00] VITALS: BP 145/49
[2021-11-02 22:00] VITALS: BP 119/37
[2021-11-03] MEDS: ALBUTEROL SULF 2.5 MG/0.5ML(0.5%) NEB SOLN NEB SCH ×4 (00:34→18:33)
[2021-11-03] MEDS: IPRATROPIUM BROM 0.5 MG/2.5ML INH SOL NEB SCH ×4 (00:34→18:34)
[2021-11-03 05:00] VITALS: BP 119/44
[2021-11-03] MEDS: ACCU-CHEK COMFORT CURVE STRIP VI SCH ×5 (06:55→21:54)
[2021-11-03] MEDS: InsuLIN REG 1unit/0.01ml Soln (100units/ml) SC SCH ×4 (06:56→21:54)
[2021-11-03 07:03] LABS: Albumin 1.7 g/dL (3.4-5.0); Bilirubin, Direct 0.2 mg/dL (0-0.2); Potassium 3.8 mmol/L (3.5-5.1)
[2021-11-03 07:06] LABS: Bilirubin, Total 0.7 mg/dL (0.2-1.0); Total Protein 5.1 g/dL (6.4-8.2)
[2021-11-03] MEDS: DOCUSATE SOD 100 MG CAP PO SCH ×2 (08:55→21:53)
[2021-11-03] MEDS: FAMOTIDINE 20 MG TAB PO SCH ×2 (08:56→21:54)
[2021-11-03] MEDS: AMIODARONE HCL 200 MG TAB PO SCH ×2 (08:56→21:54)
[2021-11-03] MEDS: cefTRIAXone 1GM/50ML D5W 50 ML IV SCH (08:56)
[2021-11-03 09:00] VITALS: BP 120/55
[2021-11-03] MEDS: HYDROcodone-ACET 5/325MG TAB PO PRN (09:00)
[2021-11-03] MEDS ORDERED: MIDAZOLAM HCL 2MG/2ML 2ml VIAL (1mg/ml) ONE (10:08)
[2021-11-03] MEDS ORDERED: fentaNYL CITRATE 100 MCG/2 ML VL ONE (10:08)
[2021-11-03] MEDS ORDERED: LIDOCAINE 2%HCL (LOCAL ANESTH.) INJ 20ML MDV ONE (10:10)
[2021-11-03 11:37] VITALS: BP 121/56
[2021-11-03 13:00] VITALS: BP 132/45
[2021-11-03] MEDS: ALBUMIN 25% 100 ML IV SCH ×2 (13:13→20:41)
[2021-11-03] MEDS: ONDANSETRON HCL 4 MG/2 ML VIAL IV PRN ×2 (13:34→21:01)
[2021-11-03] MEDS: HYDROmorphone HCL 2 MG/ML VL IV PRN ×2 (13:34→21:01)
[2021-11-03 17:00] VITALS: BP 128/53
[2021-11-03 22:00] VITALS: BP 129/59
[2021-11-04] MEDS: ALBUTEROL SULF 2.5 MG/0.5ML(0.5%) NEB SOLN NEB SCH ×5 (01:10→23:56)
[2021-11-04] MEDS: IPRATROPIUM BROM 0.5 MG/2.5ML INH SOL NEB SCH ×5 (01:10→23:56)
[2021-11-04] MEDS: ALBUMIN 25% 100 ML IV SCH (03:49)
[2021-11-04] MEDS: HYDROmorphone HCL 2 MG/ML VL IV PRN ×3 (04:41→19:40)
[2021-11-04] MEDS: ONDANSETRON HCL 4 MG/2 ML VIAL IV PRN ×2 (04:41→19:40)
[2021-11-04 05:00] VITALS: BP 125/53
[2021-11-04 05:44] LABS: Basophils # (auto) 0.1 10 ^3/uL (0-0.2); Basophils % (auto) 0.7 % (0.0-2.0); Eosinophils # (auto) 0.1 10 ^3/uL (0-0.8); Eosinophils % (auto) 0.5 % (0.0-7.0); Hematocrit 25.7 % (36.0-46.0); Hemoglobin 8.9 g/dL (12.2-16.2); Lymphocytes # (auto) 0.6 10 ^3/uL (0.4-5.4); Lymphocytes % (auto) 6.4 % (10.0-50.0); Mean Corpuscular Hemoglobin 32.3 pg (28.0-32.0); Mean Corpuscular Hgb Conc. 34.8 g/dL (32.0-36.0); Mean Corpuscular Volume 92.8 fL (80.0-100.0); Monocytes % (auto) 10.3 % (0.0-12.0); Neutrophils % (auto) 82.1 % (37.0-80.0); Red Blood Cells 2.77 10^6/uL (4.0-5.20); Red Cell Distribution Width 15.1 % (11.8-14.3); White Blood Cell 9.7 10^3/uL (4.4-10.8)
[2021-11-04 06:05] LABS: Albumin 2.5 g/dL (3.4-5.0); Calcium 9.1 mg/dL (8.5-10.1); Magnesium 1.7 mg/dL (1.6-2.6); Potassium 3.8 mmol/L (3.5-5.1)
[2021-11-04 06:07] LABS: BUN/Creatinine Ratio 25.5
[2021-11-04 06:10] LABS: Bilirubin, Total 0.9 mg/dL (0.2-1.0); Total Protein 5.4 g/dL (6.4-8.2)
[2021-11-04] MEDS: InsuLIN REG 1unit/0.01ml Soln (100units/ml) SC SCH ×4 (06:36→22:00)
[2021-11-04] MEDS: ACCU-CHEK COMFORT CURVE STRIP VI SCH ×4 (06:36→22:18)
[2021-11-04] MEDS: DOCUSATE SOD 100 MG CAP PO SCH ×2 (08:51→22:17)
[2021-11-04] MEDS: AMIODARONE HCL 200 MG TAB PO SCH ×2 (08:51→22:18)
[2021-11-04] MEDS: FAMOTIDINE 20 MG TAB PO SCH ×2 (08:52→22:18)
[2021-11-04 09:00] VITALS: BP 126/47
[2021-11-04] MEDS ORDERED: ALBUAER3 IN (11:39)
[2021-11-04] MEDS ORDERED: DOCU-94 PO (11:39)
[2021-11-04 13:00] VITALS: BP 127/67
[2021-11-04] MEDS: HYDROcodone-ACET 5/325MG TAB PO PRN (14:00)
[2021-11-04 17:00] VITALS: BP 120/43
[2021-11-04 22:00] VITALS: BP 106/47
[2021-11-05] MEDS: HYDROcodone-ACET 5/325MG TAB PO PRN ×3 (00:22→14:54)
[2021-11-05 05:00] VITALS: BP 122/70
[2021-11-05] MEDS: ONDANSETRON HCL 4 MG/2 ML VIAL IV PRN ×2 (06:12→11:55)
[2021-11-05] MEDS: HYDROmorphone HCL 2 MG/ML VL IV PRN ×2 (06:12→13:09)
[2021-11-05] MEDS: ALBUTEROL SULF 2.5 MG/0.5ML(0.5%) NEB SOLN NEB SCH ×2 (06:43→15:14)
[2021-11-05] MEDS: IPRATROPIUM BROM 0.5 MG/2.5ML INH SOL NEB SCH ×2 (06:43→11:33)
[2021-11-05] MEDS: InsuLIN REG 1unit/0.01ml Soln (100units/ml) SC SCH ×2 (07:00→11:30)
[2021-11-05] MEDS: ACCU-CHEK COMFORT CURVE STRIP VI SCH ×2 (07:00→11:30)
[2021-11-05 09:00] VITALS: BP 124/68
[2021-11-05] MEDS ORDERED: APIXABAN 5 MG TAB PO SCH (10:00)
[2021-11-05] MEDS: FAMOTIDINE 20 MG TAB PO SCH (10:08)
[2021-11-05] MEDS: DOCUSATE SOD 100 MG CAP PO SCH (10:08)
[2021-11-05] MEDS: AMIODARONE HCL 200 MG TAB PO SCH (10:09)
[2021-11-05 13:00] VITALS: BP 129/80
[2021-11-05 13:09] VITALS: BP 134/61
[2021-11-05] MEDS ORDERED: GADOTERATE MEG 7.5 MMOL/15ml INJ (0.5MMOL/ml) IV ONE (13:20)
== END 2021-11-05 17:00 | DRG 871 ==
LOC: ER 11:04 → OVERFLOW 15:30 → CATH ICU 10-26 03:00 → TELE-CENTR 10-26 22:02 → CENTRAL 11-04 14:33
PROVIDERS: ADMIT Internal Medicine; ATTEND Internal Medicine
PROC: 05H933Z Insertion of Infusion Device into Right Brachial Vein, Percutaneous Approach (ICD-10-PCS; 2021-10-24)
PROC: B54MZZA Ultrasonography of Right Upper Extremity Veins, Guidance (ICD-10-PCS; 2021-10-24)
PROC: 0BBF3ZX Excision of Right Lower Lung Lobe, Percutaneous Approach, Diagnostic (ICD-10-PCS; principal; 2021-11-03)
DX: A41.51 Sepsis due to Escherichia coli [E. coli] (principal); R65.21 Severe sepsis with septic shock; N17.0 Acute kidney failure with tubular necrosis; I21.A1 Myocardial infarction type 2; I50.43 Acute on chronic combined systolic (congestive) and diastolic (congestive) heart failure; J96.01 Acute respiratory failure with hypoxia; J18.9 Pneumonia, unspecified organism; E87.0 Hyperosmolality and hypernatremia; C34.91 Malignant neoplasm of unspecified part of right bronchus or lung; N39.0 Urinary tract infection, site not specified; I13.0 Hypertensive heart and chronic kidney disease with heart failure and stage 1 through stage 4 chronic kidney disease, or unspecified chronic kidney disease; I48.20 Chronic atrial fibrillation, unspecified; J98.11 Atelectasis; E04.2 Nontoxic multinodular goiter; I48.0 Paroxysmal atrial fibrillation; Z20.822 Contact with and (suspected) exposure to COVID-19; G25.0 Essential tremor; E03.9 Hypothyroidism, unspecified; E66.9 Obesity, unspecified; E78.5 Hyperlipidemia, unspecified; Z66 Do not resuscitate; I27.23 Pulmonary hypertension due to lung diseases and hypoxia; N18.9 Chronic kidney disease, unspecified; F17.200 Nicotine dependence, unspecified, uncomplicated; G89.29 Other chronic pain; I25.10 Atherosclerotic heart disease of native coronary artery without angina pectoris; J43.9 Emphysema, unspecified; K59.00 Constipation, unspecified; M54.50 Low back pain, unspecified; R20.0 Anesthesia of skin; R79.89 Other specified abnormal findings of blood chemistry; R74.01 Elevation of levels of liver transaminase levels; E88.09 Other disorders of plasma-protein metabolism, not elsewhere classified; R97.0 Elevated carcinoembryonic antigen [CEA]; Z68.34 Body mass index [BMI] 34.0-34.9, adult; Z79.01 Long term (current) use of anticoagulants; Z80.1 Family history of malignant neoplasm of trachea, bronchus and lung; Z80.7 Family history of other malignant neoplasms of lymphoid, hematopoietic and related tissues; Z80.8 Family history of malignant neoplasm of other organs or systems; Z83.3 Family history of diabetes mellitus; R73.03 Prediabetes; R91.8 Other nonspecific abnormal finding of lung field
CPT/HCPCS: 10005; 36415; 36600; 70553; 71045; 71250; 74176; 76536; 76775; 77012; 78306; 80048; 80053; 80076; 80307; 81001; 82306; 82378; 82550; 82570; 82805; 82962; 83036; 83605; 83690; 83735; 83880; 83970; 84100; 84132; 84156; 84300; 84436; 84443; 84481; 84484; 85014; 85018; 85025; 85379; 85610; 85652; 85730; 86704; 86706; 86708; 86803; 87040; 87081; 87086; 87088; 87186; 87340; 87426; 93005; 93306; 93886; 93970; 94640; 96361; 96365; 97110; 97116; 97530; 99291; G0378; J0696; J1815; J2250; J2405; J7042; J7060; P9047

== ENCOUNTER 2021-11-07 18:14 | Inpatient (IN) | payer MEDICARE, MEDICAID ==
[~2021-11-07] VITALS: Ht 182.9 cm; Wt 106.2 kg
[~2021-11-07 18:14] MED LIST changes: +ALBUAER3 IN; +ALEN70TA74 PO; -ATOR20TA50 PO; -CIPR-173 PO; +CYCL-839 PO; +DOCU-94 PO; -DOXY-286 PO; +FLUT1AER3 IN; +GABA300C10 PO; -HYDR25TA5 PO; -LISI30TA4 PO; -MET25T PO; +METO25TA93 PO; +TRAM50TA2 PO; -VARE1TAB PO
[2021-11-07 19:41] LABS: Hematocrit 31.4 % (36.0-46.0); Hemoglobin 10.5 g/dL (12.2-16.2); Mean Corpuscular Hgb Conc. 33.4 g/dL (32.0-36.0); Mean Corpuscular Volume 92.9 fL (80.0-100.0); Red Blood Cells 3.38 10^6/uL (4.0-5.20); Red Cell Distribution Width 15.5 % (11.8-14.3); White Blood Cell 11.1 10^3/uL (4.4-10.8)
[2021-11-07 19:44] LABS: Band Neutrophils % (manual) 0; Basophils % (manual) 0 (0.0-2.0); Blast Cells 0; Eosinophils % (manual) 0 (0-7); Metamyelocytes % 0; Promyelocytes % 0; Reactive Lymphocytes 0
[2021-11-07 19:54] LABS: Albumin 2.2 g/dL (3.4-5.0); Calcium 9.1 mg/dL (8.5-10.1); Potassium 4.3 mmol/L (3.5-5.1)
[2021-11-07 20:30] LABS: Lymphocytes % (manual) 9 (10.0-50.0); Monocytes % (manual) 5 (0-12); Myelocytes % 2
[2021-11-07] MEDS ORDERED: IOHEXOL 350 MG/ML 100ML IJ ONE (20:46)
[2021-11-07] MEDS ORDERED: HYDROcodone-ACET 5/325MG TAB PO ONE (22:45)
[2021-11-07] MEDS ORDERED: PIPERACILLIN-TAZOB 3.375GM 100 ML IV ONE (23:15)
[2021-11-07] MEDS ORDERED: ACETAMINOPHEN 325 MG TAB PO PRN (23:45)
[2021-11-07] MEDS ORDERED: IPRATROPIUM BROM 0.5 MG/2.5ML INH SOL NEB PRN (23:45)
[2021-11-07] MEDS ORDERED: ONDANSETRON HCL 4 MG/2 ML VIAL IV PRN (23:45)
[2021-11-07] MEDS ORDERED: NITROGLYCERIN 0.4 MG SL TAB SL PRN (23:45)
[2021-11-07] MEDS ORDERED: ALBUTEROL SULF 2.5 MG/0.5ML(0.5%) NEB SOLN NEB PRN (23:45)
[2021-11-08] VITALS (7 sets, daily range): BP systolic 121–146; BP diastolic 58–71
[2021-11-08] MEDS ORDERED: VANCOMYCIN PER PHARMACY 0 MG IV SCH ×2 (00:45→01:00)
[2021-11-08] MEDS ORDERED: guaiFENesin 200 MG/10 ML UD PO PRN ×2 (01:15→02:45)
[2021-11-08] MEDS ORDERED: VANCOMYCIN 1GM/250ML 250 ML IV ONE ×2 (01:45)
[2021-11-08] MEDS ORDERED: ALBUTEROL SULF 2.5 MG/0.5ML(0.5%) NEB SOLN NEB PRN (02:45)
[2021-11-08] MEDS ORDERED: NITROGLYCERIN 0.4 MG SL TAB SL PRN (02:45)
[2021-11-08] MEDS ORDERED: ONDANSETRON HCL 4 MG/2 ML VIAL IV PRN (02:45)
[2021-11-08] MEDS ORDERED: IPRATROPIUM BROM 0.5 MG/2.5ML INH SOL NEB PRN (02:45)
[2021-11-08] MEDS ORDERED: GAB100C PO (02:55)
[2021-11-08] MEDS ORDERED: LISI2.5T47 PO (02:55)
[2021-11-08] MEDS: PIPERACILLIN-TAZO 4.5GM 100 ML IV SCH ×3 (05:36→23:31)
[2021-11-08] MEDS: IPRATROPIUM BROM 0.5 MG/2.5ML INH SOL NEB SCH ×3 (05:48→20:03)
[2021-11-08] MEDS: ALBUTEROL SULF 2.5 MG/0.5ML(0.5%) NEB SOLN NEB SCH ×3 (05:49→20:04)
[2021-11-08] MEDS ORDERED: IPRATROPIUM BROM 0.5 MG/2.5ML INH SOL NEB SCH (06:00)
[2021-11-08] MEDS ORDERED: PIPERACILLIN-TAZO 4.5GM 100 ML IV SCH (06:00)
[2021-11-08] MEDS ORDERED: ALBUTEROL SULF 2.5 MG/0.5ML(0.5%) NEB SOLN NEB SCH (06:00)
[2021-11-08] MEDS: ACETAMINOPHEN 325 MG TAB PO PRN ×3 (08:35→15:24)
[2021-11-08] MEDS ORDERED: PATIENTS OWN MEDICATION (Metoprolol Succinate (Metoprolol Succinate Er) 1 TAB) PO SCH (10:00)
[2021-11-08] MEDS ORDERED: APIXABAN 5 MG TAB PO SCH (10:00)
[2021-11-08] MEDS: APIXABAN 5 MG TAB PO SCH ×4 (10:00→22:34)
[2021-11-08] MEDS ORDERED: PATIENTS OWN MEDICATION (Fluticasone-Umeclidinium-Vilan (Trelegy Ellipta 100-62.5-25 Mcg/I IN SCH (10:00)
[2021-11-08] MEDS ORDERED: FAMOTIDINE 20 MG TAB PO SCH (10:00)
[2021-11-08] MEDS: FLUTICASONE FUROATE IN SCH (10:00)
[2021-11-08] MEDS ORDERED: MULTIPLE VITAMIN TAB PO SCH (10:00)
[2021-11-08] MEDS: VILANTEROL IN SCH (10:00)
[2021-11-08] MEDS: UMECLIDINIUM IN SCH (10:00)
[2021-11-08] MEDS ORDERED: AMIODARONE HCL 200 MG TAB PO SCH (10:00)
[2021-11-08] MEDS: MULTIPLE VITAMIN TAB PO SCH (10:10)
[2021-11-08] MEDS: METOPROLOL SUCCINATE XL 50 MG TAB PO SCH ×2 (10:11→11:28)
[2021-11-08] MEDS: FAMOTIDINE 20 MG TAB PO SCH (10:13)
[2021-11-08] MEDS: AMIODARONE HCL 200 MG TAB PO SCH ×2 (10:13→22:34)
[2021-11-08] MEDS ORDERED: VANCOMYCIN 1GM/250ML 250 ML IV SCH (13:00)
[2021-11-08] MEDS: HYDROcodone-ACET 5/325MG TAB PO PRN (22:35)
[2021-11-09] MEDS ORDERED: VANCOMYCIN 1GM/250ML 250 ML IV SCH ×2 (02:30→16:00)
[2021-11-09 05:00] VITALS: BP 117/70
[2021-11-09] MEDS: HYDROcodone-ACET 5/325MG TAB PO PRN ×2 (05:47→20:08)
[2021-11-09] MEDS: PIPERACILLIN-TAZO 4.5GM 100 ML IV SCH ×3 (05:58→21:13)
[2021-11-09] MEDS: IPRATROPIUM BROM 0.5 MG/2.5ML INH SOL NEB SCH ×3 (06:47→19:42)
[2021-11-09] MEDS: ALBUTEROL SULF 2.5 MG/0.5ML(0.5%) NEB SOLN NEB SCH ×3 (06:47→19:42)
[2021-11-09 08:15] LABS: Basophils # (auto) 0.1 10 ^3/uL (0-0.2); Basophils % (auto) 0.8 % (0.0-2.0); Eosinophils # (auto) 0 10 ^3/uL (0-0.8); Eosinophils % (auto) 0.3 % (0.0-7.0); Hematocrit 30.8 % (36.0-46.0); Hemoglobin 10.2 g/dL (12.2-16.2); Lymphocytes # (auto) 0.8 10 ^3/uL (0.4-5.4); Lymphocytes % (auto) 8.6 % (10.0-50.0); Mean Corpuscular Hgb Conc. 33.3 g/dL (32.0-36.0); Mean Corpuscular Volume 93.1 fL (80.0-100.0); Monocytes % (auto) 9.9 % (0.0-12.0); Neutrophils # (auto) 7.8 10 ^3/uL (1.6-8.6); Neutrophils % (auto) 80.4 % (37.0-80.0); Nucleated Red Blood Cells % 0.2 %; Red Cell Distribution Width 15.9 % (11.8-14.3); White Blood Cell 9.7 10^3/uL (4.4-10.8)
[2021-11-09 08:29] LABS: BUN/Creatinine Ratio 17.5; Calcium 9.4 mg/dL (8.5-10.1); Potassium 3.8 mmol/L (3.5-5.1)
[2021-11-09 09:07] VITALS: BP 125/64
[2021-11-09 10:14] LABS: INR 1.14 (0.9-1.15); Partial Thromboplastin Time 27.8 sec (23.6-33.0)
[2021-11-09] MEDS: METOPROLOL SUCCINATE XL 50 MG TAB PO SCH (10:14)
[2021-11-09] MEDS: AMIODARONE HCL 200 MG TAB PO SCH ×2 (10:15→21:12)
[2021-11-09] MEDS: ACETAMINOPHEN 325 MG TAB PO PRN (10:16)
[2021-11-09] MEDS: MULTIPLE VITAMIN TAB PO SCH (10:17)
[2021-11-09] MEDS: APIXABAN 5 MG TAB PO SCH ×2 (10:17→21:12)
[2021-11-09] MEDS: FAMOTIDINE 20 MG TAB PO SCH (10:17)
[2021-11-09 12:32] VITALS: BP 112/43
[2021-11-09 13:15] VITALS: BP 120/54
[2021-11-09 16:39] VITALS: BP 112/48
[2021-11-09 21:43] VITALS: BP 123/60
[2021-11-10] MEDS: HYDROcodone-ACET 5/325MG TAB PO PRN ×3 (02:09→19:37)
[2021-11-10 05:00] VITALS: BP 119/61
[2021-11-10] MEDS: PIPERACILLIN-TAZO 4.5GM 100 ML IV SCH ×3 (05:59→21:54)
[2021-11-10] MEDS: ALBUTEROL SULF 2.5 MG/0.5ML(0.5%) NEB SOLN NEB SCH ×3 (08:21→21:08)
[2021-11-10] MEDS: IPRATROPIUM BROM 0.5 MG/2.5ML INH SOL NEB SCH ×3 (08:21→21:08)
[2021-11-10 09:00] VITALS: BP 124/68
[2021-11-10] MEDS: MULTIPLE VITAMIN TAB PO SCH (10:00)
[2021-11-10] MEDS: FLUTICASONE FUROATE IN SCH (10:00)
[2021-11-10] MEDS: UMECLIDINIUM IN SCH (10:00)
[2021-11-10] MEDS: APIXABAN 5 MG TAB PO SCH ×2 (10:00→21:54)
[2021-11-10] MEDS: VILANTEROL IN SCH (10:00)
[2021-11-10] MEDS: METOPROLOL SUCCINATE XL 50 MG TAB PO SCH (10:00)
[2021-11-10] MEDS: FAMOTIDINE 20 MG TAB PO SCH (10:00)
[2021-11-10] MEDS: AMIODARONE HCL 200 MG TAB PO SCH ×2 (10:00→21:54)
[2021-11-10 13:00] VITALS: BP 128/57
[2021-11-10] MEDS: MORPHINE SULF 30 mg ER tab PO SCH ×2 (13:26→21:55)
[2021-11-10 17:00] VITALS: BP 105/71
[2021-11-10 22:00] VITALS: BP 108/48
[2021-11-11] VITALS (7 sets, daily range): BP systolic 108–138; BP diastolic 48–86
[2021-11-11 02:37] LABS: BUN/Creatinine Ratio 16.4; Calcium 9.6 mg/dL (8.5-10.1); Potassium 4.4 mmol/L (3.5-5.1)
[2021-11-11] MEDS: PIPERACILLIN-TAZO 4.5GM 100 ML IV SCH ×3 (05:37→21:48)
[2021-11-11] MEDS: IPRATROPIUM BROM 0.5 MG/2.5ML INH SOL NEB SCH ×3 (06:25→18:34)
[2021-11-11] MEDS: ALBUTEROL SULF 2.5 MG/0.5ML(0.5%) NEB SOLN NEB SCH ×3 (06:25→18:34)
[2021-11-11] MEDS: FLUTICASONE FUROATE IN SCH (10:00)
[2021-11-11] MEDS: MULTIPLE VITAMIN TAB PO SCH (10:00)
[2021-11-11] MEDS: METOPROLOL SUCCINATE XL 50 MG TAB PO SCH (10:00)
[2021-11-11] MEDS: UMECLIDINIUM IN SCH (10:00)
[2021-11-11] MEDS: VILANTEROL IN SCH (10:00)
[2021-11-11] MEDS: FAMOTIDINE 20 MG TAB PO SCH (10:00)
[2021-11-11] MEDS: MORPHINE SULF 30 mg ER tab PO SCH ×2 (10:00→21:49)
[2021-11-11] MEDS: AMIODARONE HCL 200 MG TAB PO SCH ×2 (10:00→21:49)
[2021-11-11] MEDS: APIXABAN 5 MG TAB PO SCH ×2 (10:00→21:49)
[2021-11-11] MEDS: HYDROcodone-ACET 5/325MG TAB PO PRN ×2 (12:14→18:50)
[2021-11-11] MEDS: Pro-Stat SF 30ml Vanilla PO SCH (18:00)
[2021-11-12 05:00] VITALS: BP 108/66
[2021-11-12] MEDS: PIPERACILLIN-TAZO 4.5GM 100 ML IV SCH ×3 (05:17→23:24)
[2021-11-12] MEDS: ALBUTEROL SULF 2.5 MG/0.5ML(0.5%) NEB SOLN NEB SCH ×3 (06:14→18:00)
[2021-11-12] MEDS: IPRATROPIUM BROM 0.5 MG/2.5ML INH SOL NEB SCH ×3 (06:14→18:00)
[2021-11-12 08:00] VITALS: BP 114/51
[2021-11-12] MEDS: Pro-Stat SF 30ml Vanilla PO SCH ×2 (08:00→18:00)
[2021-11-12] MEDS: UMECLIDINIUM IN SCH (10:00)
[2021-11-12] MEDS: FLUTICASONE FUROATE IN SCH (10:00)
[2021-11-12] MEDS: VILANTEROL IN SCH (10:00)
[2021-11-12] MEDS: AMIODARONE HCL 200 MG TAB PO SCH ×2 (10:00→22:40)
[2021-11-12] MEDS: METOPROLOL SUCCINATE XL 50 MG TAB PO SCH (10:00)
[2021-11-12] MEDS: APIXABAN 5 MG TAB PO SCH ×2 (10:00→22:40)
[2021-11-12] MEDS: MULTIPLE VITAMIN TAB PO SCH (10:00)
[2021-11-12] MEDS: FAMOTIDINE 20 MG TAB PO SCH (10:00)
[2021-11-12] MEDS: MORPHINE SULF 30 mg ER tab PO SCH ×2 (10:00→22:49)
[2021-11-12] MEDS ORDERED: MORP30TA5 PO (10:34)
[2021-11-12 12:00] VITALS: BP 108/69
[2021-11-12] MEDS: HYDROcodone-ACET 5/325MG TAB PO PRN ×2 (13:41→18:40)
[2021-11-12 16:00] VITALS: BP 112/54
[2021-11-12 22:23] VITALS: BP 115/48
[2021-11-13 04:39] VITALS: BP 140/72
[2021-11-13] MEDS: PIPERACILLIN-TAZO 4.5GM 100 ML IV SCH ×2 (06:16→14:00)
[2021-11-13 08:00] VITALS: BP 140/63
[2021-11-13] MEDS: Pro-Stat SF 30ml Vanilla PO SCH ×2 (08:00→17:43)
[2021-11-13] MEDS: FAMOTIDINE 20 MG TAB PO SCH (09:37)
[2021-11-13] MEDS: MORPHINE SULF 30 mg ER tab PO SCH (09:39)
[2021-11-13] MEDS: AMIODARONE HCL 200 MG TAB PO SCH (09:40)
[2021-11-13] MEDS: APIXABAN 5 MG TAB PO SCH (09:40)
[2021-11-13] MEDS: METOPROLOL SUCCINATE XL 50 MG TAB PO SCH (09:43)
[2021-11-13] MEDS ORDERED: HYDROcodone-ACET 5/325MG TAB PO PRN (09:45)
[2021-11-13] MEDS: MULTIPLE VITAMIN TAB PO SCH (09:51)
[2021-11-13] MEDS: FLUTICASONE FUROATE IN SCH (10:00)
[2021-11-13] MEDS: VILANTEROL IN SCH (10:00)
[2021-11-13] MEDS: UMECLIDINIUM IN SCH (10:00)
[2021-11-13 11:54] VITALS: BP 122/66
[2021-11-13 16:00] VITALS: BP 144/66
[2021-11-13] MEDS: IPRATROPIUM BROM 0.5 MG/2.5ML INH SOL NEB SCH (18:00)
[2021-11-13] MEDS: ALBUTEROL SULF 2.5 MG/0.5ML(0.5%) NEB SOLN NEB SCH (18:00)
== END 2021-11-13 19:30 | DRG 180 ==
LOC: EDBD 18:14 → ER 18:16 → WEST WING 23:48 → ER 11-08 00:53 → TELE-WESTW 11-12 23:41
PROVIDERS: ADMIT Internal Medicine; ATTEND Internal Medicine
PROC: B31T1ZZ Fluoroscopy of Left Pulmonary Artery using Low Osmolar Contrast (ICD-10-PCS; 2021-11-07)
PROC: B31S1ZZ Fluoroscopy of Right Pulmonary Artery using Low Osmolar Contrast (ICD-10-PCS; 2021-11-07)
PROC: 05H933Z Insertion of Infusion Device into Right Brachial Vein, Percutaneous Approach (ICD-10-PCS; principal; 2021-11-09)
PROC: B54MZZA Ultrasonography of Right Upper Extremity Veins, Guidance (ICD-10-PCS; 2021-11-09)
DX: C34.91 Malignant neoplasm of unspecified part of right bronchus or lung (principal); J96.21 Acute and chronic respiratory failure with hypoxia; J18.9 Pneumonia, unspecified organism; I11.0 Hypertensive heart disease with heart failure; I48.0 Paroxysmal atrial fibrillation; I50.9 Heart failure, unspecified; E66.9 Obesity, unspecified; F17.210 Nicotine dependence, cigarettes, uncomplicated; J43.9 Emphysema, unspecified; E78.5 Hyperlipidemia, unspecified; Z20.822 Contact with and (suspected) exposure to COVID-19
CPT/HCPCS: 36415; 36600; 71045; 71275; 80048; 80053; 80202; 82805; 82962; 83605; 83880; 84484; 85007; 85025; 85027; 85610; 85730; 87040; 87077; 87186; 87426; 93005; 93970; 94640; 96365; G0378; J2405; J2543